=== PATIENT | female | born 1995 | race Caucasian/White ===

== ENCOUNTER 2019-02-16 12:07 | Emergency (ER) | payer BC ==
[2019-02-16 13:40] LABS: ABS Basophils 0.1 10^3/ul (0-0.2); ABS Eosinophils 0.1 10^3/ul (0-0.6); ABS Lymphocytes 1.2 10^3/ul (1.0-4.8); ABS Monocytes 0.5 10^3/ul (0-0.8); ABS Neutrophils 5.9 10^3/ul (1.5-7.7); Eosinophil % 1.7 %; Hematocrit 38 % (35-47); Hemoglobin 12.8 g/dL (12.0-16.0); Lymphocyte % 14.9 %; Mean Corpuscular HGB Conc 34 g/dL (31-36); Mean Corpuscular Hemoglobin 29 pg (27-31); Mean Corpuscular Volume 85 fL (80-97); Platelet Count 280 10^3/uL (150-450); Red Blood Count 4.43 10^6 /uL (3.70-4.87); Red Cell Distribution Width 13 % (10-15); White Blood Count 7.9 10^3/uL (3.5-10.8)
[2019-02-16 14:04] LABS: ALT 15 U/L (7-52); AST 13 U/L (13-39); Albumin 3.9 g/dL (3.2-5.2); Albumin/Globulin Ratio 1.2 (1-3); Alkaline Phosphatase 82 U/L (34-104); Anion Gap 8 mmol/L (2-11); BUN/Creatinine Ratio 15.6 (8-20); Blood Urea Nitrogen 14 mg/dL (6-24); C Reactive Protein 81.59 mg/L (<8.01); CO2 Carbon Dioxide 27 mmol/L (22-32); Calcium 9.2 mg/dL (8.6-10.3); Chloride 105 mmol/L (101-111); EGFR African American 93.1 (>60); EGFR Non-African American 76.9 (>60); Globulin 3.3 g/dL (2-4); Glucose 116 mg/dL (70-100); Potassium 3.6 mmol/L (3.5-5.0); Sodium 140 mmol/L (135-145); Total Protein 7.2 g/dL (6.4-8.9)
[2019-02-16 14:08] LABS: HCG Pregnancy < 0.60 mIU/mL
[2019-02-16 15:14] LABS: Urine Appearance Cloudy; Urine Bacteria Absent (Absent); Urine Bilirubin Negative (Negative); Urine Blood 2+ (Negative); Urine Color Yellow; Urine Glucose Negative (Negative); Urine Ketones Negative (Negative); Urine Nitrite Positive (Negative); Urine Protein 2+(100 mg/dL) (Negative); Urine Red Blood Cell 3+(>10/hpf) (Absent); Urine Specific Gravity 1.011 (1.010-1.030); Urine Urobilinogen Negative (Negative); Urine White Blood Cell 3+(>20/hpf) (Absent)
[2019-02-16] MEDS ORDERED: cefTRIAXone(*) 1 GM in NS 0.9% 50 ML* 50 ML IVPB ONE (15:15)
[2019-02-16] MEDS ORDERED: NS 0.9% 1000 ML** 1,000 ML IV ONE (15:15)
--- NOTE | 2019-02-16 15:38 | ED ---
GI/ HPI - HPI Summary HPI Summary: 23 year old female with no significant medical history presents with bilateral flank pain and RLQ pain. Patient was seen at Urgent Care for UTI symptoms and was sent to ER to be evaluated for kidney stones. Patient rates flank and abdominal pain as 8/10. Pain began 2 days and was only in the right flank and has spread to her RLQ over the last day. Nothing makes the pain better or worse. Patient drank cranberry juice in hopes of pain relief. Patient denies vomiting but has been nauseous. Patient denies PURI. Patient has had sore throat, runny nose and cough for a couple days. Patient has dysuria but denies visible hematuria. Urine has been cloudy. No significant changes in BM noted. on exam tenderness right flank and suprapubic. wbc normal. crp elevated. urine shows uti. gave dose of rocephin. CT shows no stone. patient placed on keflex by cass today so will have continue. patient understand and agrees with plan. - History of Current Complaint Chief Complaint: EDFlankPain Time Seen by Provider: 02/16/19 14:57 Stated Complaint: POSS KIDNEY STONES PER PT Pain Intensity: 8 - Allergy/Home Medications Allergies/Adverse Reactions: Allergies Allergy/AdvReac Type Severity Reaction Status Date / Time amoxicillin Allergy Hives Verified 02/16/19 12:12 Home Medications: Home Medications Cephalexin CAP* [Keflex CAP*] 500 mg PO BID 02/16/19 [History Confirmed 02/16/19 ] PMH/Surg Hx/FS Hx/Imm Hx Infectious Disease History: No Infectious Disease History: Denies: Traveled Outside the [place] in Last 30 Days Review of Systems Negative: Fever Negative: Chest Pain Negative: Shortness Of Breath Positive: Abdominal Pain, Nausea. Negative: Vomiting Positive: dysuria, flank pain All Other Systems Reviewed And Are Negative: Yes Physical Exam Triage Information Reviewed: Yes Vital Signs On Initial Exam: Initial Vitals Temp Pulse Resp BP Pulse Ox 99.2 F 117 16 130/94 97 02/16/19 12:09 02/16/19 12:09 02/16/19 12:09 02/16/19 12:09 02/16/19 12:09 Vital Signs Reviewed: Yes Appearance: Positive: Well-Appearing Skin: Positive: Warm, Dry Head/Face: Positive: Normal Head/Face Inspection Eyes: Positive: Normal, Conjunctiva Clear ENT: Positive: Pharynx normal Diagnostics - Vital Signs Vital Signs Temp Pulse Resp BP Pulse Ox 02/16/19 14:28 98.9 F 100 16 123/79 97 02/16/19 12:09 99.2 F 117 16 130/94 97 - Laboratory Lab Results: Lab Results 02/16/19 02/16/19 02/16/19 Range/Units 13:21 13:21 13:21 WBC 7.9 (3.5-10.8) 10^3/uL RBC 4.43 (3.70-4.87) 10^6 /uL Hgb 12.8 (12.0-16.0) g/dL Hct 38 (35-47) % MCV 85 (80-97) fL MCH 29 (27-31) pg MCHC 34 (31-36) g/dL RDW 13 (10-15) % Plt Count 280 (150-450) 10^3/uL MPV 8.0 (7.4-10.4) fL Neut % (Auto) 75.8 % Lymph % (Auto) 14.9 % Ogle % (Auto) 6.9 % Eos % (Auto) 1.7 % Baso % (Auto) 0.7 % Absolute Neuts (auto) 5.9 (1.5-7.7) 10^3/ul Absolute Lymphs (auto) 1.2 (1.0-4.8) 10^3/ul Absolute Monos (auto) 0.5 (0-0.8) 10^3/ul Absolute Eos (auto) 0.1 (0-0.6) 10^3/ul Absolute Basos (auto) 0.1 (0-0.2) 10^3/ul Absolute Nucleated RBC 0.0 10^3/ul Nucleated RBC % 0.0 Sodium 140 (135-145) mmol/L Potassium 3.6 (3.5-5.0) mmol/L Chloride 105 (101-111) mmol/L Carbon Dioxide 27 (22-32) mmol/L Anion Gap 8 (2-11) mmol/L BUN 14 (6-24) mg/dL Creatinine 0.90 (0.51-0.95) mg/dL Est GFR ( Amer) 93.1 (>60) Est GFR (Non-Af Amer) 76.9 (>60) BUN/Creatinine Ratio 15.6 (8-20) Glucose 116 H (70-100) mg/dL Lactic Acid 0.5 (0.5-2.0) mmol/L Calcium 9.2 (8.6-10.3) mg/dL Total Bilirubin 0.60 (0.2-1.0) mg/dL AST 13 (13-39) U/L ALT 15 (7-52) U/L Alkaline Phosphatase 82 (34-104) U/L C-Reactive Protein 81.59 H (<8.01) mg/L Total Protein 7.2 (6.4-8.9) g/dL Albumin 3.9 (3.2-5.2) g/dL Globulin 3.3 (2-4) g/dL Albumin/Globulin Ratio 1.2 (1-3) Lipase 14 (11.0-82.0) U/L Beta HCG, Quant < 0.60 mIU/mL Urine Color Urine Appearance Urine pH (5-9) Ur Specific [place] (1.010-1.030) Urine Protein (Negative) Urine Ketones (Negative) Urine Blood (Negative) Urine Nitrate (Negative) Urine Bilirubin (Negative) Urine Urobilinogen (Negative) Ur Leukocyte Esterase (Negative) Urine WBC (Auto) (Absent) Urine RBC (Auto) (Absent) Urine Bacteria (Absent) Urine Glucose (Negative) 02/16/19 Range/Units 14:27 WBC (3.5-10.8) 10^3/uL RBC (3.70-4.87) 10^6 /uL Hgb (12.0-16.0) g/dL Hct (35-47) % MCV (80-97) fL MCH (27-31) pg MCHC (31-36) g/dL RDW (10-15) % Plt Count (150-450) 10^3/uL MPV (7.4-10.4) fL Neut % (Auto) % Lymph % (Auto) % Ogle % (Auto) % Eos % (Auto) % Baso % (Auto) % Absolute Neuts (auto) (1.5-7.7) 10^3/ul Absolute Lymphs (auto) (1.0-4.8) 10^3/ul Absolute Monos (auto) (0-0.8) 10^3/ul Absolute Eos (auto) (0-0.6) 10^3/ul Absolute Basos (auto) (0-0.2) 10^3/ul Absolute Nucleated RBC 10^3/ul Nucleated RBC % Sodium (135-145) mmol/L Potassium (3.5-5.0) mmol/L Chloride (101-111) mmol/L Carbon Dioxide (22-32) mmol/L Anion Gap (2-11) mmol/L BUN (6-24) mg/dL Creatinine (0.51-0.95) mg/dL Est GFR ( Amer) (>60) Est GFR (Non-Af Amer) (>60) BUN/Creatinine Ratio (8-20) Glucose (70-100) mg/dL Lactic Acid (0.5-2.0) mmol/L Calcium (8.6-10.3) mg/dL Total Bilirubin (0.2-1.0) mg/dL AST (13-39) U/L ALT (7-52) U/L Alkaline Phosphatase (34-104) U/L C-Reactive Protein (<8.01) mg/L Total Protein (6.4-8.9) g/dL Albumin (3.2-5.2) g/dL Globulin (2-4) g/dL Albumin/Globulin Ratio (1-3) Lipase (11.0-82.0) U/L Beta HCG, Quant mIU/mL Urine Color Yellow Urine Appearance Cloudy Urine pH 6.0 (5-9) Ur Specific [place] 1.011 (1.010-1.030) Urine Protein 2+(100 mg/dl) A (Negative) Urine Ketones Negative (Negative) Urine Blood 2+ A (Negative) Urine Nitrate Positive A (Negative) Urine Bilirubin Negative (Negative) Urine Urobilinogen Negative (Negative) Ur Leukocyte Esterase 3+ A (Negative) Urine WBC (Auto) 3+(>20/hpf) A (Absent) Urine RBC (Auto) 3+(>10/hpf) A (Absent) Urine Bacteria Absent (Absent) Urine Glucose Negative (Negative) Result Diagrams: 02/16/19 13:21 02/16/19 13:21 Lab Statement: Any lab studies that have been ordered have been reviewed, and results considered in the medical decision making process. - CT abd CT Interpretation Completed By: Radiologist Summary of CT Findings: IMPRESSION: #. Normal appendix documented. #. 0.2 cm nonobstructing calyceal stone inferior pole RIGHT kidney. Negative for ureteral. stone or hydronephrosis. GIGU Course/Dx - Course Course Of Treatment: 23 year old female with no significant medical history presents with bilateral flank pain and RLQ pain. Patient was seen at Urgent Care for UTI symptoms and was sent to ER to be evaluated for kidney stones. Patient rates flank and abdominal pain as 8/10. Pain began 2 days and was only in the right flank and has spread to her RLQ over the last day. Nothing makes the pain better or worse. Patient drank cranberry juice in hopes of pain relief. Patient denies vomiting but has been nauseous. Patient denies PURI. Patient has had sore throat, runny nose and cough for a couple days. Patient has dysuria but denies visible hematuria. Urine has been cloudy. No significant changes in BM noted. on exam tenderness right flank and suprapubic. wbc normal. crp elevated. urine shows uti. gave dose of rocephin. CT shows no stone. patient placed on keflex by cass today so will have continue. patient understand and agrees with plan. - Diagnoses Differential Diagnoses - Female: Pyelonephritis, Urinary Tract Infection, Ureteral Calculi Provider Diagnoses: Complicated UTI (urinary tract infection) Discharge - Sign-Out/Discharge Documenting (check all that apply): Patient Departure Patient Received Moderate/Deep Sedation with Procedure: No - Discharge Plan Condition: Good Disposition: HOME Patient Education Materials: Kidney Infection (ED) Referrals: No Primary Care Phys,NOPCP [Primary Care Provider] - Additional Instructions: take keflex as prescribed Drink plenty of water Take Tylenol or ibuprofen every 6 hours as needed for pain follow up with primary Return to ED if develop any new or worsening symptoms - Billing Disposition and Condition Condition: GOOD Disposition: Home
[2019-02-16 17:11] VITALS: BP 138/86
--- NOTE | 2019-02-20 14:20 | PN ---
Progress Note - Progress Note Date of Service: 02/16/19 Note: Urine culture growing >100k e. coli susceptible to Keflex. No change in treatment needed at this time.
== END 2019-02-16 17:11 | disposition home or self-care (01) ==
LOC: EDSEX 12:07 → ED 12:07
DX: N39.0 Urinary tract infection, site not specified (principal); Z88.0 Allergy status to penicillin; N20.0 Calculus of kidney
CPT/HCPCS: 36415; 74176; 80053; 81003; 81015; 83605; 83690; 84702; 85025; 86140; 87077; 87086; 87186; 96365; 96366; 99282; J0696

== ENCOUNTER 2019-03-30 16:47 | Emergency (ER) | payer SELFPAY ==
[2019-03-30] MEDS ORDERED: NS 0.9% 1000 ML** 1,000 ML IV ONE ×2 (17:46→18:31)
--- NOTE | 2019-03-30 17:56 | ED ---
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 Denies vaginal bleeding/discharge. The patient rates the pain 5/10 in severity. Symptoms aggravated by nothing. Symptoms alleviated by nothing. Patient states she hasn't taken any medications for her symptoms. Patient states she had urinalysis done today 03/30/19 which was negative for UTI. Patient states she was seen in the ED in February 2019, dx right kidney stone and UTI. Patient is 4 months , vaginal delivery, no complications, currently breast feeding. - History of Current Complaint Chief Complaint: EDAbdPain Stated Complaint: BACK AND SIDE PAIN PER PT Time Seen by Provider: 03/30/19 17:42 Hx Obtained From: Patient Onset/Duration: Lasting Days - 03/23/19, Still Present Timing: Constant Severity Currently: Moderate Pain Intensity: 5 Pain Scale Used: 0-10 Numeric Location: Flank - right Aggravating Factor(s): Nothing Alleviating Factor(s): Nothing Allergies/Adverse Reactions: Allergies Allergy/AdvReac Type Severity Reaction Status Date / Time amoxicillin Allergy Hives Verified 03/30/19 17:02 Home Medications: Home Medications Eliana Fe 1-20 Tablet 1 tab PO DAILY 03/30/19 [History Confirmed 03/30/19] Pnv,Calcium 72/Iron/Folic Acid [Preplus Ca-Fe 27 mg-FA 1 mg Tb] 1 tab PO DAILY 03/30/19 [History Confirmed 03/30/19] PMH/Surg Hx/FS Hx/Imm Hx Endocrine/Hematology History: Denies: Hx Diabetes History: Reports: Hx Kidney Stones - right, Other Problems/Disorders - UTI Sensory History: Reports: Hx Contacts or Glasses Opthamlomology History: Reports: Hx Contacts or Glasses - Surgical History Surgery Procedure, Year, and Place: None Infectious Disease History: No Infectious Disease History: Denies: Traveled Outside the [place] in Last 30 Days - Family History Known Family History: Positive: Hypertension, Other - cancer - Social History Alcohol Use: None Substance Use Type: Reports: None Smoking Status (MU): Never Smoked Tobacco Review of Systems Positive: Fever, Chills Positive: flank pain - right, other - foul smelling urine Positive: Headache All Other Systems Reviewed And Are Negative: Yes Physical Exam - Summary Physical Exam Summary: Constitutional: Well-developed, Well-nourished, Alert. (-) Distressed Skin: Warm, Dry HENT: Normocephalic; Atraumatic Eyes: Conjunctiva normal Neck: Musculoskeletal ROM normal neck. (-) JVD, (-) Stridor, (-) Nuchal rigidity Cardio: Tachycardia, rate normal, Heart sounds normal; Intact distal pulses; Radial pulses are 2+ and symmetric. (-) Murmur Pulmonary/Chest wall: Effort normal. (-) Respiratory distress, (-) Wheezes, (-) Rales Abd: Soft, right flank tenderness, (-) Distension, (-) Guarding, (-) Rebound Musculoskeletal: (-) Edema Lymph: (-) Cervical adenopathy Neuro: Alert, Oriented x3 Psych: Mood and affect Normal Triage Information Reviewed: Yes Vital Signs On Initial Exam: Initial Vitals Temp Pulse Resp BP Pulse Ox 98.8 F 108 18 135/86 97 03/30/19 16:56 03/30/19 16:56 03/30/19 16:56 03/30/19 16:56 03/30/19 16:56 Vital Signs Reviewed: Yes Diagnostics - Vital Signs Vital Signs Temp Pulse Resp BP Pulse Ox 03/30/19 16:56 98.8 F 108 18 135/86 97 - Laboratory Result Diagrams: 03/30/19 18:08 03/30/19 18:08 Lab Statement: Any lab studies that have been ordered have been reviewed, and results considered in the medical decision making process. - Ultrasound Renal Ultrasound Interpretation Completed By: Radiologist Summary of Ultrasound Findings: 1. Mild right pelviectasis. 2. No shadowing stones visible. Of note, the 2 mm right renal calculus, seen on. CT from , is not identified. ED physician has reviewed this report. Re-Evaluation - Re-Evaluation First Eval Re-Evaluation Time: 20:30 Change: Unchanged Comment: patient is still mildly tachycardic in the low 100s. she is reporting RLQ pain. discussed getting CT Abd/Pel to r/o appendicitis. patient would like CT Abd/Pel done. will order CT Abd/Pel Abdominal Pain Fem Course/Dx - Course Course Of Treatment: 23 y/o F w hx R renal stone p/w R flank pain, RLQ pain, fever at home, myalgias. - PE mild R sided flank TTP, mild RLQ pain. - afebrile here, mild tachycardia to low 100's. abdominal pain differential: to the known history of a right renal stone, could be secondary to renal colic versus pyelonephritis versus UTI. We'll check a CBC to assess for infection, UA , renal ultrasound. Given IV fluids and Toradol. Also consider appendicitis, mild right lower quadrant tenderness, denies anorexia, nausea or vomiting. No fevers here. Patient denies vaginal bleeding or discharge lower suspicion for PID or TOA. Also low suspicion for torsion - Diagnoses Provider Diagnoses: Right flank pain, Abdominal pain, Fever Discharge ED - Sign-Out/Discharge Documenting (check all that apply): Sign-Out Patient Signing out patient TO: Victor Hugo Malone - Awaiting CT Abd/Pel Patient Received Moderate/Deep Sedation with Procedure: No - Discharge Plan Condition: Stable Patient Education Materials: Fever in Adults (ED), Flank Pain (ED) Referrals: No Primary Care Phys,NOPCP [Primary Care Provider] - Additional Instructions: You were seen in the emergency department for fever, flank pain, abdominal pain. Your CT scan showed If any studies were not completed at the time of discharge you will be called with the relevant results. Please follow up with your primary care doctor in next 2-3 days and return to emergency department for worsening or concerning symptoms. It was a pleasure taking care of you today. - Billing Disposition and Condition Condition: STABLE - Attestation Statements Document Initiated by Orlando: Yes Documenting Scribe: Rashmi Haddad Provider For Whom Orlando is Documenting (Include Credential): Henry Galvan MD Scribe Attestation: I, Rashmi Haddad, scribed for Henry Galvan MD on 03/30/19 at 2205. Scribe Documentation Reviewed: Yes Provider Attestation: The documentation as recorded by the Rashmi snell accurately reflects the service I personally performed and the decisions made by me, Henry Galvan MD Status of Scribe Document: Viewed
[2019-03-30 18:15] LABS: ABS Eosinophils 0.1 10^3/ul (0-0.6); ABS Lymphocytes 1.6 10^3/ul (1.0-4.8); ABS Neutrophils 6.9 10^3/ul (1.5-7.7); Eosinophil % 0.7 %; Hematocrit 34 % (35-47); Hemoglobin 11.5 g/dL (12.0-16.0); Lymphocyte % 16.9 %; Mean Corpuscular HGB Conc 34 g/dL (31-36); Mean Corpuscular Hemoglobin 29 pg (27-31); Mean Corpuscular Volume 84 fL (80-97); Mean Platelet Volume 7.5 fL (7.4-10.4); Platelet Count 305 10^3/uL (150-450); Red Blood Count 4.01 10^6 /uL (3.70-4.87); Red Cell Distribution Width 13 % (10-15); White Blood Count 9.5 10^3/uL (3.5-10.8)
[2019-03-30] MEDS ORDERED: Ketorolac INJ* 30 MG/ML 1 ML VIAL IV ONE (18:31)
[2019-03-30 18:36] LABS: Albumin 3.6 g/dL (3.2-5.2); Albumin/Globulin Ratio 1.2 (1-3); BUN/Creatinine Ratio 11.7 (8-20); C Reactive Protein 94.96 mg/L (<8.01); Calcium 8.8 mg/dL (8.6-10.3); EGFR African American 111.4 (>60); EGFR Non-African American 92.1 (>60); Globulin 3.1 g/dL (2-4); Potassium 3.5 mmol/L (3.5-5.0); Total Bilirubin 0.4 mg/dL (0.2-1.0); Total Protein 6.7 g/dL (6.4-8.9)
[2019-03-30 18:42] LABS: HCG Pregnancy 0.79 mIU/mL
[2019-03-30] MEDS ORDERED: cefTRIAXone(*) 1 GM in NS 0.9% 50 ML* 50 ML IVPB ONE (19:09)
[2019-03-30 19:22] LABS: Urine Appearance Clear; Urine Bacteria 1+ (Absent); Urine Bilirubin Negative (Negative); Urine Blood 1+ (Negative); Urine Color Straw; Urine Glucose Negative (Negative); Urine Ketones Negative (Negative); Urine Nitrite Negative (Negative); Urine Protein Negative (Negative); Urine Red Blood Cell 1+(3-5/hpf) (Absent); Urine Specific Gravity 1.004 (1.010-1.030); Urine Squamous Epithelial Cell Present (Absent); Urine Urobilinogen Negative (Negative); Urine White Blood Cell Trace(0-5/hpf) (Absent)
[2019-03-30] MEDS ORDERED: Iohexol 300* (CONTRAST) 10 ML SDV IV ONE (21:36)
--- NOTE | 2019-03-30 23:47 | ED ---
Progress - Progress Note Progress Note: Receiving sign-out from Dr. Galvan at shift change 2200 pending Abd/Pel CT reading and disposition. CT Abd/Pel: 1. No acute findings. 2. Cyst like structure located in the inferior pole right kidney. This has a density of 24 Hounsfield units. This was not clearly seen on the prior CT scan or ultrasound. This is 2F lesion. 3. The previously noted lymph nodes located adjacent to the lower pole of the left kidney are not changed since the prior CT study of 02/16/2019. ED Provider has reviewed this report. A plan for discharge was discussed with the patient and she was agreeable with this plan. Re-Evaluation - Re-Evaluation First Eval Re-Evaluation Time: 20:30 Change: Unchanged Comment: patient is still mildly tachycardic in the low 100s. she is reporting RLQ pain. discussed getting CT Abd/Pel to r/o appendicitis. patient would like CT Abd/Pel done. will order CT Abd/Pel Course/Dx - Course Course Of Treatment: Receiving sign-out from Dr. Galvan at shift change 2200 pending Abd/Pel CT reading and disposition. CT Abd/Pel: 1. No acute findings. 2. Cyst like structure located in the inferior pole right kidney. This has a density of 24 Hounsfield units. This was not clearly seen on the prior CT scan or ultrasound. This is 2F lesion. 3. The previously noted lymph nodes located adjacent to the lower pole of the left kidney are not changed since the prior CT study of 02/16/2019. ED Provider has reviewed this report. A plan for discharge was discussed with the patient and she was agreeable with this plan. - Diagnoses Provider Diagnoses: Right flank pain, Abdominal pain, Fever Discharge ED - Sign-Out/Discharge Documenting (check all that apply): Patient Departure - Discharge Receiving patient FROM: Henry Galvan Patient Received Moderate/Deep Sedation with Procedure: No - Discharge Plan Condition: Stable Disposition: HOME Patient Education Materials: Fever in Adults (ED), Flank Pain (ED) Referrals: No Primary Care Phys,NOPCP [Primary Care Provider] - Additional Instructions: You were seen in the emergency department for fever, flank pain, abdominal pain. Your CT scan showed stones in the kidney but they are not causing trouble now. You also have a small cyst on the right kidney which should be rechecked with an ultrasound in 3-6 months; your doctor can order this for you. If any studies were not completed at the time of discharge you will be called with the relevant results. Please follow up with your primary care doctor in next 2-3 days and return to emergency department for worsening or concerning symptoms. It was a pleasure taking care of you today. - Billing Disposition and Condition Condition: STABLE Disposition: Home - Attestation Statements Document Initiated by Orlando: Yes Documenting Iamibe: Prosper Ruiz Provider For Whom Orlando is Documenting (Include Credential): Victor Hugo Malone MD Scribe Attestation: Prosper Joe, scribed for Victor Hugo Malone MD on 04/06/19 at 0324. Scribe Documentation Reviewed: Yes Provider Attestation: The documentation as recorded by the Prosper snell accurately reflects the service I personally performed and the decisions made by me, Victor Hugo Malone MD Status of Scribe Document: Viewed
[2019-03-31 00:08] VITALS: BP 134/77
--- NOTE | 2019-04-03 08:25 | PN ---
Progress Note - Progress Note Date of Service: 03/30/19 Note: Patient called 8:30 AM on 04/03/19 Urine culture grew 10-25,000, moderate colony count of Escherichia coli Patient was seen for flank pain Call patient and states she is feeling improved she will return to the ED if she develops any worsening symptoms Declines any antibiotics at this time
== END 2019-03-31 00:07 | disposition home or self-care (01) ==
LOC: ED 16:47
DX: R10.31 Right lower quadrant pain (principal); R50.9 Fever, unspecified; N13.30 Unspecified hydronephrosis; Z87.442 Personal history of urinary calculi; Z88.1 Allergy status to other antibiotic agents; Z79.899 Other long term (current) drug therapy
CPT/HCPCS: 36415; 74177; 76775; 80053; 81003; 81015; 83605; 83690; 84702; 85025; 86140; 87077; 87086; 87186; 96361; 96365; 96375; 99283; J0696; J1885; Q9967